=== PATIENT | male | born 1985 | race African-American/Black ===

== ENCOUNTER 2025-05-22 20:30 | Emergency (ER) | payer MEDICAID ==
[~2025-05-22] VITALS: Ht 177.8 cm; Wt 89.0 kg
[~2025-05-22 20:30] MED LIST: NAPR-420 MT
[2025-05-22 20:37] VITALS: O2SAT 98
[2025-05-22] MEDS: ACETAMINOPHEN 325MG TABLET PO ONE (21:42)
[2025-05-22] MEDS: KETOROLAC 30MG/ML VIAL IM ONE (21:43)
[2025-05-22] MEDS ORDERED: NAPR-681 MT (22:12)
[2025-05-22] MEDS ORDERED: CYCL5TAB3 PO (22:12)
[2025-05-22] MEDS: TRAMADOL 50MG TABLET PO SCH (22:27)
[2025-05-22 22:33] VITALS: BP 122/69; PULSE 60; RESP 16; TEMP 36.5; O2SAT 99
== END 2025-05-22 22:36 | disposition home or self-care (01) ==
LOC: ER 20:30
DX: M54.6 Pain in thoracic spine (principal); F12.90 Cannabis use, unspecified, uncomplicated
CPT/HCPCS: 99284; 71045; 72070; 96372; J1885